=== PATIENT | female | born 1970 | race Asian ===

== ENCOUNTER 2020-08-14 23:36 | Emergency (ER) | payer OTHER ==
[~2020-08-14] VITALS: Ht 165.1 cm; Wt 59.0 kg
[2020-08-14 23:55] VITALS: Ht 165.1 cm; Wt 59.0 kg
[2020-08-15 03:57] VITALS: BP 104/76
== END 2020-08-15 03:57 | disposition home or self-care (01) ==
LOC: ED 23:36
DX: R51.9 Headache, unspecified (principal); R11.0 Nausea
CPT/HCPCS: J1885; J2405

== ENCOUNTER 2020-08-15 15:31 | Emergency (ER) | payer OTHER ==
[~2020-08-15] VITALS: Ht 162.6 cm; Wt 64.0 kg
[2020-08-15 15:40] VITALS: Ht 162.6 cm; Wt 64.0 kg
[2020-08-15 17:55] LABS: BASOPHIL % 0.4 % (0-2); PLATELET COUNT 367 x10^3mcL (130-400); RED CELL DISTRIBUTION WIDTH 13.4 % (11.5-14.5)
[2020-08-15 18:02] LABS: CALCIUM 8.7 mg/dL (8.5-10.1); CARBON DIOXIDE 26.1 mmol/L (21-32); CHLORIDE SERUM 98 mmol/L (98-107); CREATININE SERUM 0.8 mg/dL (0.6-1.0); GFR1 > 60 mL/min; GLUCOSE SERUM 142 mg/dL (74-106); POTASSIUM SERUM 4.2 mmol/L (3.5-5.1); SODIUM SERUM 131 mmol/L (136-145)
[2020-08-15 18:31] VITALS: BP 106/67
== END 2020-08-15 18:31 | disposition home or self-care (01) ==
LOC: ED 15:31
PROVIDERS: Emergency Medicine
DX: G44.209 Tension-type headache, unspecified, not intractable (principal)
CPT/HCPCS: J0780; J1885